=== PATIENT | female | born 1945 | race Caucasian/White ===

== ENCOUNTER 2016-06-22 01:44 | Emergency (ER) | payer MEDICARE ==
[2016-06-22] MEDS ORDERED: SODIUM CHLORIDE 0.9% 500 ML ONE (02:55)
[2016-06-22] MEDS ORDERED: ONDANSETRON 4 MG/2ML 2 ML VIAL ONE (02:55)
[2016-06-22 03:33] LABS: URINE APPEARANCE HAZY; URINE BILIRUBIN NEGATIVE (NEGATIVE); URINE BLOOD 1+ (NEGATIVE); URINE COLOR YELLOW; URINE GLUCOSE (UA) NEGATIVE (NEGATIVE); URINE LEUKOCYTE ESTERASE 2+ (NEGATIVE); URINE NITRITE NEGATIVE (NEGATIVE); URINE PROTEIN 2+ (NEGATIVE); URINE UROBILINOGEN NORMAL (0-1 mg/dl)
[2016-06-22 03:42] LABS: URINE BACTERIA 3+; URINE EPITHELIAL CELLS FEW /hpf; URINE RBC 25-35 /hpf; URINE WBC >100 /hpf
[2016-06-22 05:16] LABS: ABSOLUTE NEUTROPHIL COUNT 5.9 K/mm3 (1.8-7.7); BASO % 0.5 % (0.2-1.0); EOS # 0.2 (0.0-0.5); EOS % 2.3 % (0.9-2.9); HEMATOCRIT 41.5 % (37.0-47.0); HEMOGLOBIN 13.3 gm/l (12.0-16.0); IMM NEUT% 0.2 % (0-1); LYMPH # 1.6 (1.0-4.8); LYMPH % 19.5 % (15-45); MEAN CORPUSCULAR HEMOGLOBIN 30.4 pg (27.0-31.0); MONO # 0.6 (0.0-0.8); MONO % 6.9 % (4-12); NEUT % 70.6 % (43-75); PLATELET COUNT 299 K/mm3 (130-400)
[2016-06-22] MEDS ORDERED: CEPHALEXIN 500 MG CAPSULE ONE (05:18)
[2016-06-22] MEDS ORDERED: ONDANSETRON 4 MG ODT TAB ONE (05:19)
[2016-06-22 05:35] LABS: ALB/GLOB RATIO 1.3 (>1.0); CALCIUM 10.3 mg/dL (8.6-10.3)
== END 2016-06-22 06:39 | disposition home or self-care (01) ==
LOC: ED 01:44
DX: N39.0 Urinary tract infection, site not specified (principal); R10.31 Right lower quadrant pain
CPT/HCPCS: 83690; 85025; 87086; 80053; 87186; 84484; 81001; 99284; 99283; A9270 ×2; J7040

== ENCOUNTER 2016-07-01 10:00 | Emergency (ER) | payer MEDICARE ==
[2016-07-01] MEDS ORDERED: AMOX 875 MG/CLAV 125 MG 1 EACH TABLET ONE (10:38)
[2016-07-01] MEDS ORDERED: DOXYCYCLINE HYCLATE 100 MG TABLET ONE ×2 (10:38→10:41)
== END 2016-07-01 12:01 | disposition home or self-care (01) ==
LOC: ED 10:00
DX: L03.115 Cellulitis of right lower limb (principal); E11.9 Type 2 diabetes mellitus without complications; J45.909 Unspecified asthma, uncomplicated; Z77.22 Contact with and (suspected) exposure to environmental tobacco smoke (acute) (chronic)
CPT/HCPCS: 99283 ×2; A9270 ×3

== ENCOUNTER 2016-07-04 03:08 | Emergency (ER) | payer MEDICARE ==
[2016-07-04 04:22] LABS: PH,URINE 6.5 (5.0-8.0); SPECIFIC GRAVITY 1.015 (1.001-1.030); URINE BILIRUBIN NEGATIVE (NEGATIVE); URINE BLOOD NEGATIVE (NEGATIVE); URINE GLUCOSE (UA) NEGATIVE (NEGATIVE); URINE LEUKOCYTE ESTERASE NEGATIVE (NEGATIVE); URINE NITRITE NEGATIVE (NEGATIVE); URINE PROTEIN NEGATIVE (NEGATIVE); URINE UROBILINOGEN NORMAL (0-1 mg/dl)
[2016-07-04 04:27] LABS: URINE APPEARANCE CLEAR; URINE COLOR YELLOW
== END 2016-07-04 05:15 | disposition home or self-care (01) ==
LOC: ED 03:08
DX: M54.5 Low back pain (principal); R11.0 Nausea; E11.9 Type 2 diabetes mellitus without complications

== ENCOUNTER 2016-07-05 11:21 | Emergency (ER) | payer MEDICARE ==
[2016-07-05] MEDS ORDERED: SODIUM CHLORIDE 0.9% 1,000 ML ONE (13:06)
[2016-07-05] MEDS ORDERED: ONDANSETRON 4 MG/2ML 2 ML VIAL ONE (13:06)
== END 2016-07-05 14:38 | disposition home or self-care (01) ==
LOC: ED 11:21
DX: R11.0 Nausea (principal); E11.9 Type 2 diabetes mellitus without complications; R25.1 Tremor, unspecified; K21.9 Gastro-esophageal reflux disease without esophagitis; J45.909 Unspecified asthma, uncomplicated; M15.9 Polyosteoarthritis, unspecified; E66.01 Morbid (severe) obesity due to excess calories; Z79.2 Long term (current) use of antibiotics; Z79.899 Other long term (current) drug therapy; Z88.1 Allergy status to other antibiotic agents; Z88.5 Allergy status to narcotic agent; Z79.4 Long term (current) use of insulin
CPT/HCPCS: 99284; 99283; J7030